=== PATIENT | female | born 1970 | race Caucasian/White ===

== ENCOUNTER 2021-05-18 05:42 | Day surgery (SDC) | payer OTHER ==
[2021-05-10 16:53] VITALS: BMI 28.7
[2021-05-18 12:25] VITALS: BP 118/68; PULSE 61; TEMP 97.9
== END 2021-05-18 12:25 | disposition home or self-care (01) ==
LOC: JASU-ENDO 05:42
PROVIDERS: ATTEND Internal Medicine Gastroenterology
PROC: 0DB98ZX Excision of Duodenum, Via Natural or Artificial Opening Endoscopic, Diagnostic (ICD-10-PCS; 2021-05-18)
PROC: 0DB78ZX Excision of Stomach, Pylorus, Via Natural or Artificial Opening Endoscopic, Diagnostic (ICD-10-PCS; 2021-05-18)
PROC: 0DB48ZX Excision of Esophagogastric Junction, Via Natural or Artificial Opening Endoscopic, Diagnostic (ICD-10-PCS; 2021-05-18)
PROC: 0DJD8ZZ Inspection of Lower Intestinal Tract, Via Natural or Artificial Opening Endoscopic (ICD-10-PCS; principal; 2021-05-18 11:00)
DX: Z12.11 Encounter for screening for malignant neoplasm of colon (principal); K21.00 Gastro-esophageal reflux disease with esophagitis, without bleeding; K64.8 Other hemorrhoids; D50.9 Iron deficiency anemia, unspecified; Z80.0 Family history of malignant neoplasm of digestive organs; Z83.71 Family history of colonic polyps
CPT/HCPCS: 43239; G0105; 81025; 88305-TC; 88342-TC

== ENCOUNTER 2022-05-02 08:07 | Emergency (ER) | payer OTHER ==
[2022-05-02 08:23] VITALS: BP 147/83; PULSE 83; RESP 16; TEMP 98.1; BMI 27.4
== END 2022-05-02 08:46 | disposition home or self-care (01) ==
LOC: FER 08:07
DX: S01.411A Laceration without foreign body of right cheek and temporomandibular area, initial encounter (principal); S50.311A Abrasion of right elbow, initial encounter; W01.198A Fall on same level from slipping, tripping and stumbling with subsequent striking against other object, initial encounter; Y93.01 Activity, walking, marching and hiking; Y92.092 Bedroom in other non-institutional residence as the place of occurrence of the external cause
CPT/HCPCS: 99283-25

== ENCOUNTER 2022-10-15 18:53 | Emergency (ER) | payer OTHER ==
[2022-10-15] MEDS ORDERED: IBUPROFEN 600 MG TABLET (FP) PO ONE (18:55)
[2022-10-15 19:04] VITALS: BP 120/76; PULSE 76; RESP 18; TEMP 98.4; BMI 27.4
== END 2022-10-15 20:04 | disposition home or self-care (01) ==
LOC: FER 18:53
DX: S83.422A Sprain of lateral collateral ligament of left knee, initial encounter (principal); M25.562 Pain in left knee; X58.XXXA Exposure to other specified factors, initial encounter; Y93.53 Activity, golf
CPT/HCPCS: 73560-TC-LT-FY; 99283-25

== ENCOUNTER 2024-05-14 05:52 | Day surgery (SDC) | payer OTHER ==
[2024-05-04 10:03] VITALS: BMI 29.2
[2024-05-14 12:01] VITALS: TEMP 97.9
[2024-05-14 12:33] VITALS: BP 144/79; PULSE 76; RESP 16
== END 2024-05-14 12:35 | disposition home or self-care (01) ==
LOC: JASU-ENDO 05:52
PROVIDERS: ATTEND Internal Medicine Gastroenterology
PROC: 0DB78ZX Excision of Stomach, Pylorus, Via Natural or Artificial Opening Endoscopic, Diagnostic (ICD-10-PCS; 2024-05-14)
PROC: 0DB68ZX Excision of Stomach, Via Natural or Artificial Opening Endoscopic, Diagnostic (ICD-10-PCS; 2024-05-14)
PROC: 0DB48ZX Excision of Esophagogastric Junction, Via Natural or Artificial Opening Endoscopic, Diagnostic (ICD-10-PCS; 2024-05-14)
PROC: 0DB98ZX Excision of Duodenum, Via Natural or Artificial Opening Endoscopic, Diagnostic (ICD-10-PCS; principal; 2024-05-14 12:00)
DX: K21.00 Gastro-esophageal reflux disease with esophagitis, without bleeding (principal); K44.9 Diaphragmatic hernia without obstruction or gangrene; K31.7 Polyp of stomach and duodenum; K29.60 Other gastritis without bleeding; Z83.79 Family history of other diseases of the digestive system; Z80.0 Family history of malignant neoplasm of digestive organs
CPT/HCPCS: 81025; 88305-TC; 88341-TC; 88342-TC